=== PATIENT | male | born 1990 | race Caucasian/White ===

== ENCOUNTER → 2018-08-04 | Outpatient (CLI) | payer OTHER ==
[2018-08-04 16:52] LABS: HCT 48.5 % (39.0-53.0); HGB 16.1 gm/dL (13.0-17.5); MCH 30.6 pg (25.0-35.0); MCHC 33.2 g/dL (31.0-37.0); MCV 92.3 fL (80.0-100.0); Mean Platelet Volume 7.8; Platelet Count 178 k/uL (150-450); RBC 5.25 m/uL (4.30-5.90); RDW 13.3 % (11.5-15.5); WBC 7.8 k/uL (3.8-10.6)
== END | disposition home or self-care (01) ==
LOC: LABPAT 16:24
PROVIDERS: ATTEND Anesthesiology
DX: Z01.812 Encounter for preprocedural laboratory examination (principal)
CPT/HCPCS: 36415; 85027

== ENCOUNTER 2018-08-05 07:00 | Day surgery (SDC) | payer OTHER ==
[2018-08-03 10:25] VITALS: BMI 20.3
[~2018-08-05 07:00] MED LIST: DEXAMETHASONE SOD PHOSPHATE 10 MG/ML 1 ML VIAL IV ONE; HEPARIN SODIUM,PORCINE 5,000 UNIT/ML 1 ML VIAL SQ ONE; HYDROmorphone 0.5 MG/0.5 ML SYRINGE IVP PRN; LIDOCAINE 1% 20 ML VIAL (10MG/ML) FOR IV START INTRADERMA PRN; ONDANSETRON 4 MG/2 ML VIAL IVP ONE; SCOPOLAMINE 1.5MG/72HR PATCH TRANSDERM ONE; ceFAZolin IN SWFI 2 GM/20 ML SYRINGE IVP ONE
[2018-08-05 07:18] VITALS: TEMP 98.2
[2018-08-05] MEDS: LACTATED RINGERS 1,000 ML IV SCH (07:35)
[2018-08-05] MEDS ORDERED: BUPIVACAIN-EPI 0.5%-1:200,000 30 ML VIAL SQ ONE (08:01)
[2018-08-05] MEDS ORDERED: MIDAZOLAM 2 MG/2 ML VIAL ONE (08:26)
[2018-08-05] MEDS ORDERED: GLYCOPYRROLATE 0.2 MG/ML 2 ML VIAL ONE (08:26)
[2018-08-05] MEDS ORDERED: NEOSTIGMINE 1 MG/ML 10 ML VIAL ONE (08:26)
[2018-08-05] MEDS ORDERED: LIDOCAINE 1% INJ 10MG/ML (20 ML MDV) ONE (08:26)
[2018-08-05] MEDS ORDERED: ROCURONIUM BROMIDE 10 MG/ML 10 ML VIAL IV ONE (08:26)
[2018-08-05] MEDS ORDERED: PROPOFOL 10 MG/ML 20 ML VIAL IV ONE (08:26)
[2018-08-05] MEDS ORDERED: fentaNYL (PF) 50 MCG/ML 2 ML AMP ONE (08:26)
[2018-08-05] MEDS ORDERED: HYDROmorphone (PF) 1 MG/ML ONE (08:26)
[2018-08-05] MEDS ORDERED: NALOXONE 0.4 MG/ML 1 ML VIAL IV PRN (10:02)
[2018-08-05] MEDS ORDERED: HYDROcodone/APAP 5-325MG 1 EACH TAB PO PRN (10:02)
--- NOTE | 2018-08-05 10:06 | P.OP ---
Date of Procedure: 08/05/18 Procedure(s) Performed: PREOPERATIVE DIAGNOSIS: Left inguinal hernia POSTOPERATIVE DIAGNOSIS: Same PROCEDURE: Laparoscopic repair lateral inguinal hernia with the da Bret robot assistance with mesh SURGEON: Brittaney EBL: Minimal ANESTHESIA: General COMPLICATIONS: None OPERATIVE PROCEDURE: Patient was placed in the operating table in the supine position. The patient was placed under general anesthesia. The abdomen was prepped and draped in usual sterile fashion. A small curvilinear supraumbilical incision was made. The fascia was retracted anteriorly with Bearden forceps. The Veress needle was inserted. The saline drop test was normal. Insufflation took place to 15 mmHg. A 5 mm trocar was placed into the peritoneal cavity. This was later switched to a 12 mm trocar. 2 additional 8 mm trochars were placed in the right upper quadrant and left upper quadrant under visualization. The robotic arms were then brought in and docked into place. The fenestrated bipolar was used in the left arm and the laparoscopic marla was utilized in the right arm. A 30 12 mm scope was used in the up position. The peritoneal cavity was inspected. The patient had an indirect hernia on the left side. Right side was free of any visible hernias. The peritoneum was incised in a horizontal fashion cephalad to the internal inguinal ring. Following that careful dissection of the preperitoneal space took place. This took place using both electrocautery, sharp dissection but primarily blunt dissection. Visualization of the pubic tubercle and Johnson's ligament took place medially. Full dissection took place laterally as well. The hernia sac was fully dissected. Once we had adequate space the 15 x 10 progrip mesh was advanced into the preperitoneal space and flattened out appropriately to cover all potential hernia sites. No sutures were used. The peritoneal defect was then closed using a locking 2-0 VLok suture. The pneumoperitoneum was then evacuated. The fascia at the 12 mm site was closed using the Winston Rodriguez technique and an 0 Vicryl stitch. The skin of all 3 sites was closed using a 4-0 Monocryl stitch. Skin glue was then applied. DISPOSITION: Stable to recovery room
[2018-08-05] MEDS: MEPERIDINE 50 MG/ML SYRINGE IVP ONE ×2 (10:18→10:32)
[2018-08-05] MEDS ORDERED: HYDROcodone/APAP 5-325MG 1 EACH TAB PO ONE (11:01)
[2018-08-05 11:24] VITALS: RESP 16
[2018-08-05 12:49] VITALS: BP 123/77; PULSE 68
== END 2018-08-05 13:19 | disposition home or self-care (01) ==
LOC: OR 07:00
PROVIDERS: ATTEND Surgery
DX: K40.90 Unilateral inguinal hernia, without obstruction or gangrene, not specified as recurrent (principal); Z87.891 Personal history of nicotine dependence

== ENCOUNTER 2023-08-09 16:46 | Emergency (ER) | payer OTHER ==
--- NOTE | 2023-08-09 17:11 | ED ---
Back Pain HPI - General Source: patient, RN notes reviewed Limitations: no limitations <Spencer Singh - Last Filed: 08/09/23 17:11> <Kandy Gaines - Last Filed: 08/09/23 22:10> - General Chief Complaint: Back Pain/Injury Stated Complaint: back pain Time Seen by Provider: 08/09/23 17:07 - History of Present Illness Initial Comments: Quicknote 32-year-old male presenting to the ED with complaints of back pain. Patient states that he hurt his back 2 months ago while changing a tire. States that since then pain has been improving however would like to get checked out as pain is still ongoing. Denies saddle anesthesia or incontinence. Denies changes in urinary habits. (Spencer Singh) 32-year-old male with no significant past medical history presents emergency department chief complaint of lumbar back pain. Patient states that roughly 1 month ago he was changing his car tire at home when he lifted up the tire using mostly his back resulting in pain and a muscle spasm. He states that his pain has been improving over the past month however would like to be evaluated due to persistent pain. He denies loss of bladder or bowel continence, saddle anesthesias. He has not taken any oral medication at home over the past month to alleviate symptoms, has been using IcyHot. Denies dysuria, hematuria Inc rease in frequency or urgency, radiating pain, numbness or paresthesias. (Kandy Gaines) - Related Data Previous Rx's Medication Instructions Recorded Hydrocodone/Acetaminophen [[place] 1 tab PO Q6HR PRN 3 Days #10 tab 08/05/18 5-325] Allergies Allergy/AdvReac Type Severity Reaction Status Date / Time No Known Allergies Allergy Verified 08/09/23 17:08 Review of Systems ROS Other: All systems not noted in ROS Statement are negative. <Spencer Singh - Last Filed: 08/09/23 17:11> ROS Other: All systems not noted in ROS Statement are negative. <Kandy Gaines - Last Filed: 08/09/23 22:10> ROS Statement: Those systems with pertinent positive or pertinent negative responses have been documented in the HPI. Past Medical History Past Medical History: No Reported History History of Any Multi-Drug Resistant Organisms: None Reported Past Surgical History: No Surgical Hx Reported Additional Past Anesthesia/Blood Transfusion Reaction / Comment(s): Has never had general anesthesia. Past Psychological History: No Psychological Hx Reported Smoking Status: Vaper Past Alcohol Use History: None Reported Past Drug Use History: None Reported - Past Family History Mother Family Medical History: No Reported History <GenmartaSpencer crum - Last Filed: 08/09/23 17:11> General Exam Limitations: no limitations <GenrosarioSpencer - Last Filed: 08/09/23 17:11> General appearance: alert, in no apparent distress Head exam: Present: atraumatic, normocephalic, normal inspection Eye exam: Present: normal appearance, PERRL, EOMI. Absent: scleral icterus, conjunctival injection, periorbital swelling ENT exam: Present: normal exam, mucous membranes moist Neck exam: Present: normal inspection. Absent: tenderness, meningismus, lymphadenopathy Respiratory exam: Present: normal lung sounds bilaterally. Absent: respiratory distress, wheezes, rales, rhonchi, stridor Cardiovascular Exam: Present: regular rate, normal rhythm, normal heart sounds. Absent: systolic murmur, diastolic murmur, rubs, gallop, clicks GI/Abdominal exam: Present: soft, normal bowel sounds. Absent: distended, tenderness, guarding, rebound, rigid Extremities exam: Present: normal inspection, full ROM, normal capillary refill. Absent: tenderness, pedal edema, joint swelling, calf tenderness Back exam: Present: normal inspection, full ROM, tenderness (left flank). Absent: CVA tenderness (R), CVA tenderness (L), muscle spasm Neurological exam: Present: alert, oriented X3, CN II-XII intact Psychiatric exam: Present: normal affect, normal mood Skin exam: Present: warm, dry, intact, normal color. Absent: rash <Kandy Gaines - Last Filed: 08/09/23 22:10> - General Exam Comments Initial Comments: Visual Physical Exam Vital signs reviewed General: Well-appearing, nontoxic, no acute distress. Head: Normocephalic, atraumatic Eyes: PERRLA, EOMI ENT: Airway patent Chest: Nonlabored breathing Skin: No visual rash, normal skin tone Neuro: Alert and oriented 3 Musculoskeletal: No gross abnormalities (Spencer Sinhg) Course Vital Signs 08/09/23 08/09/23 17:06 19:37 Temperature 98 F 98.5 F Pulse Rate 84 58 L Respiratory 20 18 Rate Blood Pressure 121/74 126/77 O2 Sat by Pulse 97 98 Oximetry Medical Decision Making <Spencer Singh - Last Filed: 08/09/23 17:11> <Kandy Gainse - Last Filed: 08/09/23 22:10> - Medical Decision Making Quicknote portion performed. Signed Spencer Singh PA-C (Spencer Singh) Was pt. sent in by a medical professional or institution (, PA, LAND ACQUISITION MANAGER, urgent care, hospital, or penitentiary...) When possible be specific @ -No Did you speak to anyone other than the patient for history (EMS, parent, family, police, friend...)? What history was obtained from this source @ -No Did you review nursing and triage notes (agree or disagree)? Why? @ -I reviewed and agree with nursing and triage notes Were old charts reviewed (outside hosp., previous admission, EMS record, old EKG, old radiological studies, urgent care reports/EKG's, penitentiary records)? Report findings @ -No old charts were reviewed Differential Diagnosis (chest pain, altered mental status, abdominal pain women, abdominal pain men, vaginal bleeding, weakness, fever, dyspnea, syncope, headache, dizziness, GI bleed, back pain, seizure, CVA, palpatations, mental health, musculoskeletal)? @ -Differential Musculoskeletal Muscular strain, contusion, ligament sprain, fracture, arthritis, septic arthritis, bursitis, cellulitis, muscle spasm, nerve compression, DVT, arterial occlusion, herpes zoster, electrolyte abnormality, tumor.... This is not meant to be in all inclusive list EKG interpreted by me (3pts min.). @ -None X-rays interpreted by me (1pt min.). @ -Stray of the lumbar spine no acute process noted. CT interpreted by me (1pt min.). @ -None done U/S interpreted by me (1pt. min.). @ -None done What testing was considered but not performed or refused? (CT, X-rays, U/S, labs)? Why? @ -None What meds were considered but not given or refused? Why? @ -None Did you discuss the management of the patient with other professionals (professionals i.e. , PA, LAND ACQUISITION MANAGER, lab, RT, psych nurse, social services manager, library services coordinator, teacher, combat systems officer, watch caser)? Give summary @ -No Was smoking cessation discussed for >3mins.? @ -No Was critical care preformed (if so, how long)? @ -No Were there social determinants of health that impacted care today? How? (Homelessness, low income, unemployed, alcoholism, drug addiction, transportation, low edu. Level, literacy, decrease access to med. care, [facility], rehab)? @ -No Was there de-escalation of care discussed even if they declined (Discuss DNR or withdrawal of care, Hospice)? DNR status @ -No What co-morbidities impacted this encounter? (DM, HTN, Smoking, COPD, CAD, Cancer, CVA, ARF, Chemo, Hep., AIDS, mental health diagnosis, sleep apnea, morbid obesity)? @ -None Was patient admitted / discharged? Hospital course, mention meds given and route, prescriptions, significant lab abnormalities, going to OR and other pertinent info. @ -[Discharged. 32-year-old male with lumbar back pain. Patient was originally evaluated as a quick note where a x-ray of the back was ordered. On my examination the patient is noted to have left lumbar pain, negative straight leg test. Patient has no red flag symptoms concerning for cauda equina. X-ray negative for acute process. Patient was given a dose of Toradol and a lidocaine patch was applied in the emergency room. Recommend the patient continue to use Tylenol and Motrin at home as needed in addition to changing lidocaine patch as needed. Strict return parameters discussed with the patient is verbalized understanding. Case discussed with Dr. Mccall. Undiagnosed new problem with uncertain prognosis? @ -No Drug Therapy requiring intensive monitoring for toxicity (Heparin, Nitro, Insulin, Cardizem)? @ -No Were any procedures done? @ -No Diagnosis/symptom? @ -lumbar back strain Acute, or Chronic, or Acute on Chronic? @ -acute Uncomplicated (without systemic symptoms) or Complicated (systemic symptoms)? @ -uncomplicated Side effects of treatment? @ -No Exacerbation, Progression, or Severe Exacerbation? @ -No Poses a threat to life or bodily function? How? (Chest pain, [place], [place], pneumonia, PE, COPD, DKA, ARF, appy, cholecystitis, CVA, Diverticulitis, Homicidal, Suicidal, threat to staff... and all critical care pts) @ -No (Kandy Gaines) Disposition <Spencer Singh - Last Filed: 08/09/23 17:11> Is patient prescribed a controlled substance at d/c from ED?: No Time of Disposition: 18:53 <Kandy Gaines - Last Filed: 08/09/23 22:10> Clinical Impression: Back pain, Back sprain Disposition: HOME SELF-CARE Condition: Good Instructions (If sedation given, give patient instructions): Acute Low Back Pain (ED) Additional Instructions: Return to the emergency department if symptoms worsen or do not improve. Continue supportive treatment at home including Tylenol, Motrin, heating packs, lidocaine patches. Referrals: None,Stated [Primary Care Provider] - 1-2 days
--- NOTE | 2023-08-09 18:02 | XR ---
EXAMINATION TYPE: XR lumbar spine 2 or 3V DATE OF EXAM: 08/09/2023 CLINICAL HISTORY: pain TECHNIQUE: Three views of the lumbar spine are submitted. COMPARISON: None. FINDINGS: There are 5 lumbar type vertebral bodies identified. The lumbar spine shows satisfactory alignment w ithout evidence of acute fracture or dislocation. Vertebral body heights are within normal limits. Mi ld degenerative narrowing at L5-S1. The overlying soft tissue appears unremarkable. IMPRESSION: No acute fracture or dislocation is seen in the lumbar spine. ICD 10 NO FRACTURE, INITIAL EVALUATION
[2023-08-09] MEDS: KETOROLAC 15 MG/ML 1 ML VIAL IM STA (19:30)
[2023-08-09] MEDS: LIDOCAINE 4% PATCH TOPICAL ONE (19:31)
[2023-08-09 19:38] VITALS: BP 126/77; PULSE 58; RESP 18; TEMP 98.5
== END 2023-08-09 19:37 | disposition home or self-care (01) ==
LOC: EC 16:46
DX: S33.5XXA Sprain of ligaments of lumbar spine, initial encounter (principal); S39.012A Strain of muscle, fascia and tendon of lower back, initial encounter; F17.290 Nicotine dependence, other tobacco product, uncomplicated; X50.0XXA Overexertion from strenuous movement or load, initial encounter
CPT/HCPCS: 72100; 99283; 96372; J1885